=== PATIENT | female | born 1995 | race Two or more races ===

== ENCOUNTER 2018-03-09 22:43 | Emergency (ER) | payer BC ==
[2018-03-10 02:59] LABS: ABSOLUTE BASOPHILS # (AUTO) 0.1 10^3/uL (0.0-0.2); ABSOLUTE EOSINOPHILS # (AUTO) 0.1 10^3/uL (0.0-0.6); ABSOLUTE LYMPHOCYTES (AUTO) 2.1 10^3/uL (0.5-4.7); ABSOLUTE MONOCYTES (AUTO) 0.7 10^3/uL (0.1-1.4); ABSOLUTE NEUT (AUTO) 6.2 10^3/uL (1.7-8.2); BASOPHILS % (AUTO) 0.8 % (0-2); EOSINOPHILS % (AUTO) 0.8 % (0-6); HEMATOCRIT 34.4 % (36.0-47.0); HEMOGLOBIN 11.1 g/dL (12.0-15.5); LYMPHOCYTES % (AUTO) 22.6 % (13-45); MEAN CORPUSCULAR HEMOGLOBIN 22.6 pg (27.0-33.4); MEAN CORPUSCULAR HGB CONC 32.2 g/dL (32.0-36.0); MEAN CORPUSCULAR VOLUME 70 fl (80-97); MONOCYTES % (AUTO) 7.7 % (3-13); PLATELET COUNT 298 10^3/uL (150-450); RED CELL DISTRIBUTION WIDTH 15.3 % (11.5-14.0); SEGMENTED NEUTROPHILS % (AUTO) 68.1 % (42-78); TOTAL CELLS COUNTED % (AUTO) 100 %; WHITE BLOOD COUNT 9.1 10^3/uL (4.0-10.5)
[2018-03-10 03:40] LABS: APPEARANCE,URINE SLIGHTLY-CLOUDY; BILIRUBIN,URINE NEGATIVE (NEGATIVE); COLOR,URINE YELLOW; GLUCOSE, URINE NEGATIVE (NEGATIVE); KETONES,URINE NEGATIVE (NEGATIVE); LEUKOCYTE ESTERASE,URINE LARGE (NEGATIVE); NITRITE,URINE NEGATIVE (NEGATIVE); PROTEIN,URINE NEGATIVE (NEGATIVE); URINE SPECIFIC GRAVITY 1.027
--- NOTE | 2018-03-10 03:48 | RADIOLOGY REPORT (SQ) ---
EXAM DESCRIPTION: CHEST 2 VIEWS CLINICAL HISTORY: right sided pleurisy COMPARISON: None. FINDINGS: Frontal and lateral views of the chest. The cardiomediastinal silhouette has normal size and contour. No consolidation, pneumothorax, or pleural effusion. No displaced rib fractures identified. Upper abdominal soft tissues are unremarkable. IMPRESSION: 1. No acute pulmonary process identified.
[2018-03-10] MEDS ORDERED: KETOROLAC TROMETHAMINE INJ/PF 30 MG/1 ML SDV IV ONE (03:57)
[2018-03-10 04:22] LABS: ALANINE AMINOTRANSFERASE 70 U/L (9-52); ALKALINE PHOSPHATASE 106 U/L (38-126); ANION GAP 14 (5-19); ASPARTATE AMINO TRANSFERASE 45 U/L (14-36); BILIRUBIN,DIRECT 0.2 mg/dL (0.0-0.4); BILIRUBIN,TOTAL 0.2 mg/dL (0.2-1.3); BLOOD UREA NITROGEN 14 mg/dL (7-20); CALCIUM 9.4 mg/dL (8.4-10.2); CARBON DIOXIDE 25 mmol/L (22-30); CHLORIDE 106 mmol/L (98-107); GLUCOSE 94 mg/dL (75-110); LIPASE 54.5 U/L (23-300); POTASSIUM 4.7 mmol/L (3.6-5.0); SODIUM 144.7 mmol/L (137-145); TOTAL PROTEIN 7.3 g/dL (6.3-8.2)
--- NOTE | 2018-03-10 05:49 | RADIOLOGY REPORT (SQ) ---
EXAM DESCRIPTION: U/S ABDOMEN COMPLETE W/O DOP CLINICAL HISTORY: RUQ pain COMPARISON: None. TECHNIQUE: Real-time sonographic images of the abdomen were obtained using a curved multi hertz transducer. FINDINGS: The visualized portions of the pancreas are unremarkable. The visualized portions of the aorta and IVC are unremarkable. The liver has normal contour and echogenicity. The common bile duct measures 0.3 cm. Hepatopedal flow in the portal vein. The gallbladder has a normal appearance. Minimal layering echogenic debris. No gallstones identified. No wall thickening or pericholecystic fluid. The right kidney measures 9.1 cm in length. The left kidney measures 8.3 cm in length. No solid renal mass, shadowing renal calculi, or hydronephrosis. The spleen measures 9.4 cm in length.No abnormality of the spleen identified. IMPRESSION: 1. Small amount of gallbladder sludge. No gallstones.
--- NOTE | 2018-03-10 06:17 | ER Document Report ---
ED General - General Chief Complaint: Rib Pain Stated Complaint: FLANK PAIN Time Seen by Provider: 03/10/18 01:45 Notes: Patient is a 22-year-old female presents emergency room with a chief complaint of right upper quadrant pain for the past 2 days. Patient states that it occasionally radiates into her right shoulder. States it is worse in certain positions. She admits intermittent nausea without vomiting. Denies any fevers or chills. States that she does have some discomfort with deep inhalation. She denies any tobacco use, hormone use, recent travel or recent procedures. Otherwise healthy female. Denies any previous abdominal surgeries. Last menstrual period was about 1 week ago. TRAVEL OUTSIDE OF THE [place] IN LAST 30 DAYS: No - Related Data Allergies/Adverse Reactions: No Known Allergies Allergy (Unverified 03/10/18 07:08) Past Medical History - Social History Smoking Status: Never Smoker Frequency of alcohol use: Social Drug Abuse: None Family History: Reviewed & Not Pertinent Patient has suicidal ideation: No Patient has homicidal ideation: No Renal/ Medical History: Denies: Hx Peritoneal Dialysis Review of Systems - Review of Systems Constitutional: No symptoms reported EENT: No symptoms reported Cardiovascular: No symptoms reported Respiratory: No symptoms reported Gastrointestinal: See HPI Genitourinary: No symptoms reported Musculoskeletal: No symptoms reported -: Yes All other systems reviewed and negative Physical Exam - Vital signs Vitals: Temp Pulse Resp BP Pulse Ox 98.9 F 92 18 123/72 98 03/09/18 23:34 03/09/18 23:34 03/09/18 23:34 03/09/18 23:34 03/09/18 23:34 - Notes Notes: PHYSICAL EXAM GENERAL: Alert, interacts well. HEAD: Normocephalic, atraumatic. EYES: Pupils equal, round, and reactive to light. Extraocular movements intact. ENT: Oral mucosa moist, tongue midline. NECK: Full range of motion. Supple. Trachea midline. LUNGS: Clear to auscultation bilaterally, no wheezes, rales, or rhonchi. No respiratory distress. HEART: Regular rate and rhythm. No murmurs, gallops, or rubs. ABDOMEN: Soft, nondistended, right upper quadrant pain with positive Hardy sign. No guarding, rebound, or rigidity.. Bowel sounds present in all 4 quadrants. EXTREMITIES: Moves all 4 extremities spontaneously. No edema, radial and dorsalis pedis pulses 2/4 bilaterally. No cyanosis. NEUROLOGICAL: Alert and oriented x4. Normal speech. PSYCH: Normal affect, normal mood. SKIN: Warm, dry, normal turgor. No rashes or lesions noted. Course - Re-evaluation Re-evalutation: 03/10/18 06:16 Patient is a 22-year-old female who presents with right upper quadrant pain. There is noted gallbladder sludge on her right upper quadrant ultrasound. Mild elevations in her AST and ALT but without any significant elevations in her bilirubins. Patient not presenting with any acute infection concerning for's developing sepsis. Reviewed patient's results with her and she is declining to be admitted or evaluated by the surgeon this time. Discussed with her to follow -up with surgery next week and otherwise discussed strict return precautions. On repeat abdominal exam pain is much more tolerable after pain medication. Patient has not had any episodes of emesis and no nausea. - Vital Signs Vital signs: Temp Pulse Resp BP Pulse Ox 98.6 F 84 20 112/75 97 03/10/18 07:01 03/10/18 07:01 03/10/18 07:01 03/10/18 07:01 03/10/18 07:01 - Laboratory Result Diagrams: 03/10/18 02:40 03/10/18 03:46 Laboratory results interpreted by me: 03/10/18 03/10/18 03/10/18 02:40 03:16 03:46 Hgb 11.1 L Hct 34.4 L MCV 70 L MCH 22.6 L RDW 15.3 H AST 45 H ALT 70 H Urine Urobilinogen 4.0 H Ur Leukocyte Esterase LARGE H - Diagnostic Test Radiology reviewed: Reports reviewed Discharge - Discharge Clinical Impression: Abnormal gall bladder diagnostic imaging Condition: Good Disposition: HOME, SELF-CARE Instructions: Gallbladder Disease ([facility]), Low-Fat Diet ([facility]) Forms: Parent Work Note, Return to Work Referrals: NATIVIDAD CASTELAN MD [COMMUNITY BASED STAFF] - Follow up tomorrow (primary care) ASHER MAY MD [CRAYON PAINTER] - Follow up tomorrow (surgery)
[2018-03-10 07:08] VITALS: BP 112/75
== END 2018-03-10 07:20 | disposition home or self-care (01) ==
LOC: EDBD → ER 22:43
DX: K83.9 Disease of biliary tract, unspecified (principal); R07.81 Pleurodynia; R10.11 Right upper quadrant pain; M25.511 Pain in right shoulder; R11.0 Nausea
CPT/HCPCS: 99284; 96374; 36415; 83690; 84703; 85025; 80053; 81001; 71046; 76700; J1885

== ENCOUNTER 2018-03-12 20:06 | Emergency (ER) | payer BC ==
--- NOTE | 2018-03-12 20:33 | ER Document Report ---
ED Medical Screen (RME) - General Chief Complaint: Abdominal Pain Stated Complaint: ABDOMINAL PAIN Time Seen by Provider: 03/12/18 20:23 Notes: This 22-year-old female patient comes emergency room complaining of persistent right upper quadrant abdominal pain. She was seen here on 03/09/2018 with a 2 day history of right upper quadrant abdominal pain going up into her right upper scapular region. Ultrasound that time showed a small amount of gallbladder sludge with otherwise normal gallbladder. Her white blood cell count was normal, her transaminases were only slightly above the upper limit of normal. The urine done on that visit suggested urinary tract infection, but I cannot see where that was addressed in the chart or treated. She also reports that she started coughing yesterday evening. I have greeted and performed a rapid initial assessment of this patient. A comprehensive ED assessment and evaluation of the patient, analysis of test results and completion of the medical decision making process will be conducted by additional ED providers. TRAVEL OUTSIDE OF THE [place] IN LAST 30 DAYS: No - Related Data Allergies/Adverse Reactions: No Known Allergies Allergy (Unverified 03/10/18 07:08) Past Medical History - Social History Chew tobacco use (# tins/day): No Frequency of alcohol use: Occasional Drug Abuse: None Renal/ Medical History: Denies: Hx Peritoneal Dialysis Physical Exam - Vital signs Vitals: Temp Pulse Resp BP Pulse Ox 99.2 F 96 18 122/74 99 03/12/18 20:14 03/12/18 20:14 03/12/18 20:14 03/12/18 20:14 03/12/18 20:14 Course - Vital Signs Vital signs: Temp Pulse Resp BP Pulse Ox 99.2 F 96 18 122/74 99 03/12/18 20:14 03/12/18 20:14 03/12/18 20:14 03/12/18 20:14 03/12/18 20:14
[2018-03-12 21:30] LABS: ABSOLUTE BASOPHILS # (AUTO) 0.1 10^3/uL (0.0-0.2); ABSOLUTE EOSINOPHILS # (AUTO) 0.1 10^3/uL (0.0-0.6); ABSOLUTE LYMPHOCYTES (AUTO) 2.3 10^3/uL (0.5-4.7); ABSOLUTE MONOCYTES (AUTO) 0.7 10^3/uL (0.1-1.4); ABSOLUTE NEUT (AUTO) 6.8 10^3/uL (1.7-8.2); EOSINOPHILS % (AUTO) 0.9 % (0-6); HEMATOCRIT 32.4 % (36.0-47.0); HEMOGLOBIN 10.3 g/dL (12.0-15.5); LYMPHOCYTES % (AUTO) 22.6 % (13-45); MEAN CORPUSCULAR HEMOGLOBIN 22.5 pg (27.0-33.4); MEAN CORPUSCULAR HGB CONC 31.7 g/dL (32.0-36.0); MEAN CORPUSCULAR VOLUME 71 fl (80-97); PLATELET COUNT 349 10^3/uL (150-450); RED BLOOD COUNT 4.57 10^6/uL (3.72-5.28); RED CELL DISTRIBUTION WIDTH 15.4 % (11.5-14.0); SEGMENTED NEUTROPHILS % (AUTO) 68.5 % (42-78); TOTAL CELLS COUNTED % (AUTO) 100 %
[2018-03-12 21:41] LABS: APPEARANCE,URINE CLEAR; BILIRUBIN,URINE NEGATIVE (NEGATIVE); COLOR,URINE YELLOW; GLUCOSE, URINE NEGATIVE (NEGATIVE); KETONES,URINE NEGATIVE (NEGATIVE); LEUKOCYTE ESTERASE,URINE TRACE (NEGATIVE); NITRITE,URINE NEGATIVE (NEGATIVE); PROTEIN,URINE NEGATIVE (NEGATIVE); URINE SPECIFIC GRAVITY 1.024
[2018-03-12 21:51] LABS: ALANINE AMINOTRANSFERASE 42 U/L (9-52); ALBUMIN 4.2 g/dL (3.5-5.0); ALKALINE PHOSPHATASE 101 U/L (38-126); ANION GAP 13 (5-19); ASPARTATE AMINO TRANSFERASE 34 U/L (14-36); BILIRUBIN,DIRECT 0.2 mg/dL (0.0-0.4); BILIRUBIN,TOTAL 0.2 mg/dL (0.2-1.3); BLOOD UREA NITROGEN 17 mg/dL (7-20); CARBON DIOXIDE 25 mmol/L (22-30); CHLORIDE 105 mmol/L (98-107); GLUCOSE 85 mg/dL (75-110); LIPASE 83.1 U/L (23-300); POTASSIUM 4.3 mmol/L (3.6-5.0); SODIUM 142.6 mmol/L (137-145); TOTAL PROTEIN 7.6 g/dL (6.3-8.2)
[2018-03-12] MEDS ORDERED: MORPHINE SULFATE 10 MG/ML INJ IV ONE (22:15)
--- NOTE | 2018-03-12 22:59 | RADIOLOGY REPORT (SQ) ---
EXAM DESCRIPTION: U/S ABDOMEN LTD W/DOPPLER COMPLETED DATE/TIME: 03/12/2018 10:49 pm REASON FOR STUDY: RUQ pain COMPARISON: 03/10/2018 TECHNIQUE: Dynamic and static grayscale images acquired of the abdomen and recorded on PACS. Anilo enwton selected color Doppler and spectral images recorded. LIMITATIONS: None. FINDINGS: PANCREAS: No masses. Visualized pancreatic duct normal caliber. LIVER: No masses. Echotexture normal. LIVER VASCULATURE: Normal directional flow of the main portal vein and hepatic veins. GALLBLADDER: No stones. Normal wall thickness. No pericholecystic fluid. ULTRASOUND-DETECTED KERR'S SIGN: Negative. INTRAHEPATIC DUCTS AND COMMON DUCT: CBD and intrahepatic ducts normal caliber. No filling defects. INFERIOR VENA CAVA: Normal flow. AORTA: No aneurysm. RIGHT KIDNEY: Normal size. Normal echogenicity. No solid or suspicious masses. No hydronephrosis. No calcifications. PERITONEAL AND RIGHT PLEURAL SPACE: No ascites or effusions. OTHER: No other significant findings. IMPRESSION: NORMAL RIGHT UPPER QUADRANT ULTRASOUND. TECHNICAL DOCUMENTATION: JOB ID: [id number] [employer]- All Rights Reserved Reading location - IP/workstation name: [email or web address]
--- NOTE | 2018-03-13 00:10 | ER Document Report ---
ED General - General Chief Complaint: Abdominal Pain Stated Complaint: ABDOMINAL PAIN Time Seen by Provider: 03/12/18 20:23 Notes: Patient is a 22-year-old female who presents with complaint of right upper quadrant abdominal pain. Some nausea but no vomiting. No diarrhea. She has it is worse whenever she eats. She was seen few days ago. At that time ultrasound showed some sludge in gallbladder. Said when she gets pain does radiate into her right shoulder blade. She has no history of abdominal surgeries. She is otherwise healthy and does not take medications. She is referred to surgery. She did call the surgery clinic and set up an appointment which is this coming Wednesday. No other complaints this time. No fevers. TRAVEL OUTSIDE OF THE [place] IN LAST 30 DAYS: No - Related Data Allergies/Adverse Reactions: No Known Allergies Allergy (Unverified 03/10/18 07:08) Past Medical History - Social History Smoking Status: Never Smoker Chew tobacco use (# tins/day): No Frequency of alcohol use: Occasional Drug Abuse: None Family History: Reviewed & Not Pertinent Patient has suicidal ideation: No Patient has homicidal ideation: No Renal/ Medical History: Denies: Hx Peritoneal Dialysis Review of Systems - Review of Systems Notes: My Normal Review Basic REVIEW OF SYSTEMS: CONSTITUTIONAL : Denies fever, chills, or sweats. Denies recent illness. CARDIOVASCULAR: Denies chest pain. RESPIRATORY: Denies cough, cold, or chest congestion. Denies shortness of breath, difficulty breathing, or wheezing. GASTROINTESTINAL: Upper quadrant abdominal pain. Nausea. No vomiting. GENITOURINARY: Denies difficulty urinating, painful urination, burning, frequency, or blood in urine. MUSCULOSKELETAL: Denies neck or back pain or joint pain or swelling. SKIN: Denies rash or skin lesions. NEUROLOGICAL: Denies altered mental status or loss of consciousness. Denies headache. Denies weakness or paralysis or loss of use of either side. Denies problems with gait or speech. Denies sensory or motor loss. ALL OTHER SYSTEMS REVIEWED AND NEGATIVE. Physical Exam - Vital signs Vitals: Temp Pulse Resp BP Pulse Ox 99.2 F 96 18 122/74 99 03/12/18 20:14 03/12/18 20:14 03/12/18 20:14 03/12/18 20:14 03/12/18 20:14 - Notes Notes: General Appearance: Well nourished, alert, cooperative, no acute distress, obvious discomfort. Vitals: reviewed, See vital signs table. Head: no swelling or tenderness to the head Eyes: PERRL, EOMI, Conjuctiva clear Lungs: No wheezing, No rales, No rhonci, No accessory muscle use, good air exchange bilaterally. Heart: Normal rate, Regular rythm, No murmur, no rub Abdomen: Normal BS, soft, No rigidity, mild right upper quadrant abdominal tenderness to palpation. Remainder of abdomen is nontender., No guarding, no rebound, no abdominal masses, no organomegaly Extremities: strength 5/5 in all extremities, good pulses in all extremities, no swelling or tenderness in the extremities, no edema. Skin: warm, dry, appropriate color, no rash Neuro: speech clear, oriented x 3, normal affect, responds appropriately to questions. Course - Re-evaluation Re-evalutation: 03/13/18 00:21 Patient's laboratory evaluation is unremarkable. Her history and physical exam findings are consistent with what is likely be biliary dyskinesia. At this time she does not require emergent cholecystectomy. I think she is appropriate for outpatient follow-up with her appointment with the surgery clinic this coming Wednesday. I will prescribe her some Ultram to take 1 she has worsening pain not controlled Motrin or Tylenol. I informed her to return to the ER if she has severe recurrent pain, fevers, vomiting, or feels unwell. I talked her length about avoiding fatty foods and basically to eat just a very very bland diet until she is seen by the surgeon. Patient agrees with plan will be discharged home. Dictation of this chart was performed using voice recognition software; therefore, there may be some unintended grammatical errors. - Vital Signs Vital signs: Temp Pulse Resp BP Pulse Ox 99.2 F 96 18 122/74 99 03/12/18 20:14 03/12/18 20:14 03/12/18 20:14 03/12/18 20:14 03/12/18 20:14 - Laboratory Result Diagrams: 03/12/18 21:10 03/12/18 21:10 Laboratory results interpreted by me: 03/12/18 03/12/18 21:10 21:10 Hgb 10.3 L Hct 32.4 L MCV 71 L MCH 22.5 L MCHC 31.7 L RDW 15.4 H Urine Urobilinogen 2.0 H Ur Leukocyte Esterase TRACE H Discharge - Discharge Clinical Impression: Abdominal pain Qualifiers: Abdominal location: right upper quadrant Qualified Code(s): R10.11 - Right upper quadrant pain Condition: Good Disposition: HOME, SELF-CARE Additional Instructions: Please follow up with your appointment with the surgeon on Wednesday as scheduled. please return tot he ER immediately if you have worsening pain, fevers, vomiting , or feel unwell. Please avoid all foods that are spicy or potentially have fat. Please eat very bland food. Take Tylenol and Motrin initially for pain. Save the Ultram for if the Motrin and Tylenol do not help. Prescriptions: Tramadol HCl [Ultram 50 mg Tablet] 50 mg PO Q6HP PRN #15 tablet PRN Reason: Ondansetron [Zofran Odt 4 mg Tablet] 1 tab PO Q4H PRN #15 tab.rapdis PRN Reason: For Nausea/Vomiting
[2018-03-13 00:37] VITALS: BP 117/76
== END 2018-03-13 00:37 | disposition home or self-care (01) ==
LOC: ER 20:06
DX: R10.11 Right upper quadrant pain (principal); R11.0 Nausea
CPT/HCPCS: 99284; 96374; 36415; 87086; 83690; 85025; 80053; 81001; 76705; 93976; J2270

== ENCOUNTER → 2018-03-15 | Outpatient (CLI) | payer SELFPAY ==
--- NOTE | 2018-03-15 15:04 | RADIOLOGY REPORT (SQ) ---
EXAM DESCRIPTION: CT ABD/PELVIS WITH IV ONLY COMPLETED DATE/TIME: 03/15/2018 2:33 pm REASON FOR STUDY: RUQ PAIN (R10.11) R10.11 RIGHT UPPER QUADRANT PAIN COMPARISON: Abdominal ultrasound dated 03/12/2018 TECHNIQUE: CT scan of the abdomen and pelvis performed using helical scanning technique with dynamic intravenous contrast injection. No oral contrast. Images reviewed with lung, soft tissue, and bone windows. Reconstructed coronal and sagittal MPR images reviewed. Delayed images for evaluation of the urinary system also acquired. All images stored on PACS. All CT scanners at this facility use dose modulation, iterative reconstruction, and/or weight based d osing when appropriate to reduce radiation dose to as low as reasonably achievable (ALARA). [facility]: Dose Right [facility]: CareDose [facility]: Dose Right [facility]: Teradose 4D [facility]: [employer] CONTRAST TYPE AND DOSE: contrast/concentration: Isovue mg/ml; Total Contrast Delivered: 100.0 ml; T otal Saline Delivered: 52.9 ml RENAL FUNCTION: None required. The patient is less than 50 years old. RADIATION DOSE: CT Rad equipment meets quality standard of care and radiation dose reduction techniq ues were employed. CTDIvol: 12.1 - 13.0 mGy. DLP: 1330 mGy-cm.. LIMITATIONS: None. FINDINGS: LOWER CHEST: No significant findings. No nodules or infiltrates. Minimal linear density i s identified in the right posterior sulcus most consistent with subsegmental atelectasis. LIVER: Normal size. No masses. No dilated ducts. SPLEEN: Normal size. No focal lesions. PANCREAS: No masses. No significant calcifications. No adjacent inflammation or peripancreatic fluid collections. Pancreatic duct not dilated. GALLBLADDER: No identified stones by CT criteria. No inflammatory changes to suggest cholecystitis. ADRENAL GLANDS: No significant masses or asymmetry. RIGHT KIDNEY AND URETER: No solid masses. No significant calcifications. No hydronephrosis or hyd roureter. LEFT KIDNEY AND URETER: No solid masses. No significant calcifications. No hydronephrosis or hydr oureter. AORTA AND VESSELS: No aneurysm. No dissection. Renal arteries, SMA, celiac without stenosis. RETROPERITONEUM: No retroperitoneal adenopathy, hemorrhage or masses. BOWEL AND PERITONEAL CAVITY: No masses or inflammatory changes. No free fluid or peritoneal masses. APPENDIX: Not identified PELVIS: There is a 5.5 by 3.9 cm in diameter mass in the left pelvis suspicious for an ectopic gestat ion. Other etiologies cannot be excluded however. Clinical correlation is recommended. Pelvic ultr asound may be of value for further evaluation if clinically warranted. Small cystic area is identifi ed in the right pelvis most consistent with a small right ovarian cyst. No free fluid. Normal bladde r. ABDOMINAL WALL: No masses. No hernias. BONES: No significant or acute findings. OTHER: No other significant finding. IMPRESSION: Left pelvic mass as noted above suspicious for an ectopic gestation. Other etiologies c annot be excluded. Clinical correlation is recommended. Pelvic ultrasound may be of value for furth er evaluation if clinically warranted. Other findings as noted above TECHNICAL DOCUMENTATION: JOB ID: [id number] Quality ID # [id number]: Final reports with documentation of one or more dose reduction techniques (e.g., Au tomated exposure control, adjustment of the mA and/or kV according to patient size, use of iterative reconstruction technique) 2010 [employer]- All Rights Reserved Reading location - IP/workstation name: [email or web address]
== END ==
LOC: RAD 13:56
PROVIDERS: ATTEND Internal Medicine
DX: R10.11 Right upper quadrant pain (principal); R19.02 Left upper quadrant abdominal swelling, mass and lump
CPT/HCPCS: 74177

== ENCOUNTER 2018-07-16 10:14 | Emergency (ER) | payer BC ==
[2018-07-16] MEDS ORDERED: KETOROLAC TROMETHAMINE INJ/PF 30 MG/1 ML SDV IV ONE (10:46)
[2018-07-16] MEDS ORDERED: DEXAMETHASONE SOD PHOS INJ 10 MG/1 ML VIAL IV ONE (10:46)
[2018-07-16] MEDS ORDERED: RINGERS SOLUTION,LACTATED 1,000 ML IV ONE (10:50)
--- NOTE | 2018-07-16 10:52 | ER Document Report ---
ED ENT - General Mode of Arrival: Ambulatory Information source: Patient TRAVEL OUTSIDE OF THE [place] IN LAST 30 DAYS: No - HPI Patient complains to provider of: Throat problem - Your throat pain Onset/Duration: Persistent, Worse Quality of pain: Sharp, Stabbing Severity: Moderate Pain Level: 3 Location of pain: Throat Associated symptoms: Sore throat, Swollen glands, Other - Quality swallowing Similar symptoms previously: Yes Recently seen / treated by doctor: Yes <NARINDER CARSON - Last Filed: 07/16/18 17:13> <VICK LUCERO - Last Filed: 07/16/18 19:38> - General Chief Complaint: Sore Throat Stated Complaint: MOUTH PAIN Time Seen by Provider: 07/16/18 10:37 Notes: 22-year-old female presents to ED for complaint of sore throat. She states she is having difficulty swallowing today. She states she was diagnosed with strep yesterday at Dr. Rodriguez's office. She states she would they did not swab her throat but her most of her pain is on the left side. She states she was given amoxicillin and Motrin to take orally there was liquid but she is having trouble swallowing the medications now. She is alert oriented speaking with a muffled voice. She does have a blister to the left side of her mouth she states that from putting ice on her lips trying to keep herself hydrated. She states that when she tries to open her mouth because of the blister to bleed. ( NARINDER CARSON) - Related Data Allergies/Adverse Reactions: No Known Allergies Allergy (Verified 07/16/18 10:18) Past Medical History - General Information source: Patient - Social History Smoking Status: Never Smoker Cigarette use (# per day): No Chew tobacco use (# tins/day): No Smoking Education Provided: No Frequency of alcohol use: Occasional Drug Abuse: None Occupation: [employer] Lives with: Spouse/Significant other Family History: Reviewed & Not Pertinent Patient has suicidal ideation: No Patient has homicidal ideation: No - Past Medical History Cardiac Medical History: Reports: None Pulmonary Medical History: Reports: Hx Bronchitis EENT Medical History: Reports: None Neurological Medical History: Reports: None Endocrine Medical History: Reports: None Renal/ Medical History: Reports: None Malignancy Medical History: Reports: None GI Medical History: Reports: None Musculoskeletal Medical History: Reports None Skin Medical History: Reports None Psychiatric Medical History: Reports: None Traumatic Medical History: Reports: None Infectious Medical History: Reports: None Surgical Hx: Negative Past Surgical History: Reports: None - Immunizations Immunizations up to date: Yes <NARINDER CARSON Filed: 07/16/18 17:13> Review of Systems - Review of Systems Constitutional: No symptoms reported EENT: Throat pain - Worse to the left side, Difficulty swallowing, Other - Due to the left side of the bottom lip Cardiovascular: No symptoms reported Respiratory: No symptoms reported Gastrointestinal: No symptoms reported Genitourinary: No symptoms reported Female Genitourinary: No symptoms reported Musculoskeletal: No symptoms reported Skin: No symptoms reported Hematologic/Lymphatic: No symptoms reported Neurological/Psychological: No symptoms reported <NARINDER CARSON Filed: 07/16/18 17:13> Physical Exam - Vital signs Interpretation: Normal - General General appearance: Appears well, Alert - HEENT Head: Normocephalic, Atraumatic Eyes: Normal Pupils: PERRL Ears: Normal External canal: Normal Tympanic membrane: Normal Sinus: Normal Nasal: Normal Mouth/Lips: Lesions - Left lower lip Pharynx: Erythema, Exudate, Tonsillar hypertrophy Neck: Anterior cervical chain, Lymphadenopathy - Respiratory Respiratory status: No respiratory distress Chest status: Nontender Breath sounds: Normal Chest palpation: Normal - Cardiovascular Rhythm: Regular Heart sounds: Normal auscultation Murmur: No - Abdominal Inspection: Normal Distension: No distension Bowel sounds: Normal Tenderness: Nontender Organomegaly: No organomegaly - Back Back: Normal, Nontender - Extremities General upper extremity: Normal inspection, Nontender, Normal color, Normal ROM , Normal temperature General lower extremity: Normal inspection, Nontender, Normal color, Normal ROM , Normal temperature, Normal weight bearing. No: John's sign - Neurological Neuro grossly intact: Yes Cognition: Normal Orientation: AAOx4 [place] Coma Scale Eye Opening: Spontaneous [place] Coma Scale Verbal: Oriented [place] Coma Scale Motor: Obeys Commands Sandra Coma Scale Total: 15 Speech: Normal Motor strength normal: LUE, RUE, LLE, RLE Sensory: Normal - Psychological Associated symptoms: Normal affect, Normal mood - Skin Skin Temperature: Warm Skin Moisture: Dry Skin Color: Normal <NARINDER CARSON - Last Filed: 07/16/18 17:13> - Vital signs Vitals: Temp Pulse Resp BP Pulse Ox 98.5 F 103 H 16 127/87 H 98 07/16/18 10:18 07/16/18 10:18 07/16/18 10:18 07/16/18 10:18 07/16/18 10:18 Course - Laboratory Result Diagrams: 07/16/18 11:05 07/16/18 11:05 - Diagnostic Test Radiology reviewed: Image reviewed, Reports reviewed <NARINDER CARSON - Last Filed: 07/16/18 17:13> - Laboratory Result Diagrams: 07/16/18 11:05 07/16/18 11:05 <VICK LUCERO - Last Filed: 07/16/18 19:38> - Re-evaluation Re-evalutation: 07/16/18 17:[address] with Dr. Lucero. She recommended the patient have labs and CT for her sore throat when the CT was showed no acute peritonsillar abscess she stated the patient should be treated with penicillin G. Patient was treated with Toradol and Decadron and then after her CT results she was treated with penicillin G IM. (NARINDER CARSON) 07/16/18 19:37 CAT scan LAD obtained prior to discussion with APC. Patient reports being diagnosed with strep throat yesterday at urgent care but states that she is unable to swallow her medication. I did recommend penicillin G IM. (VICK LUCERO) - Vital Signs Vital signs: Temp Pulse Resp BP Pulse Ox 98.5 F 92 16 124/85 98 07/16/18 10:18 07/16/18 13:29 07/16/18 10:18 07/16/18 13:29 07/16/18 13:29 - Laboratory Laboratory results interpreted by me: 07/16/18 07/16/18 11:05 11:05 Hgb 11.5 L Hct 35.7 L MCV 70 L MCH 22.5 L RDW 15.3 H AST 37 H Total Protein 8.9 H Discharge <NARINDER CARSON - Last Filed: 07/16/18 17:13> <VICK LUCERO - Last Filed: 07/16/18 19:38> - Discharge Clinical Impression: Sore throat Condition: Stable Disposition: HOME, SELF-CARE Additional Instructions: SORE THROAT: Sore throats may be caused by viruses, bacteria, or fungi. Most are due to a virus, and must get better on their own. Bacterial sore throats, particularly those due to "strep," need treatment with antibiotics. If an antibiotic is prescribed, be sure to take the medication for a full 10 days. Failure to take the antibiotic can result in complications such as rheumatic fever. Sometimes, an injection of antibiotics is given instead of pills or liquid. This single "shot" is equal in effectiveness to the oral medication. To relieve symptoms, take acetaminophen for pain. Sip clear liquids frequently, or eat popsicles or ice chips. Anesthetic sprays or lozenges may help. Make sure the air in the room is not too dry. Avoid using decongestants or antihistamines. Call the doctor if there is no improvement in two days, or if you have difficulty breathing, increasing throat pain, high fever, rash, or frequent vomiting. Penicillins The antibiotic you have received is a member of the penicillin family. This is a very useful class of antibiotics. The particular type of antibiotic chosen for you was determined by the nature of your problem. Penicillins are absorbed best when taken on an empty stomach, and should be taken either a half hour before or two hours after a meal. Some newer medicines of the penicillin class are better taken with food -- if this is the case, the pharmacist will label the medicine to alert you. Penicillins usually have no side effects. However, allergy to penicillins is common. If you have had an allergic reaction to any drug of the penicillin family, you should never take any other penicillin. Notify your doctor at once if you develop hives, itching, swelling, faintness, or shortness of breath. Less serious side effects can include nausea or diarrhea. Toradol Injection You have been given an injection of ketorolac tromethamine (Toradol). This is an excellent, safe drug for pain control. It also has potent antiinflammatory action. You should have significant pain relief within about one hour. Toradol is not addicting and is non-sedating. It does not interfere with driving or work. Call or return if you develop itching, hives, shortness of breath, or rash. STEROID MEDICATION: You have been given a medicine of the cortisone/steroid class. This medication is used to control inflammation or allergy. It is usually only given for a short period of time, until the acute process subsides. There are usually no side effects from short-term use of cortisone-like medications. Some persons feel an increased sense of well-being and are not sleepy at bedtime. Long-term use of cortisone medications is best avoided, unless required for a severe condition. If your condition does not remit, or relapses after the course of corticosteroid medication, you should consult your physician. I have given you a written report of your labs and CT. Please follow-up with Dr. Rodriguez on Wednesday and take him these results. Please let him know you had a penicillin G shot today as you unable to swallow your oral medications. Please let them know that you also had Toradol and Decadron for your discomfort. Salt and soda solution 1 quart of water 1 tablespoon of salt 1 teaspoon of baking soda Mixed 3 ingredients together and boil for 1 minute Placed in a covered quart jar Use 1/2 ounce of cold solution to gargle 3 times a day FOLLOW-UP CARE: If you have been referred to a physician for follow-up care, call the physician s office for an appointment as you were instructed or within the next two days. If you experience worsening or a significant change in your symptoms, notify the physician immediately or return to the Emergency Department at any time for re-evaluation. Referrals: YOSVANY RODRIGUEZ MD [Primary Care Provider] - Follow up as needed JOEY BROOKS DO [ASSOCIATE] - Follow up as needed
[2018-07-16 11:31] LABS: ABSOLUTE LYMPHOCYTES (AUTO) 1.7 10^3/uL (0.5-4.7); ABSOLUTE MONOCYTES (AUTO) 0.9 10^3/uL (0.1-1.4); ABSOLUTE NEUT (AUTO) 4.9 10^3/uL (1.7-8.2); BASOPHILS % (AUTO) 0.3 % (0-2); EOSINOPHILS % (AUTO) 0.2 % (0-6); HEMATOCRIT 35.7 % (36.0-47.0); HEMOGLOBIN 11.5 g/dL (12.0-15.5); LYMPHOCYTES % (AUTO) 22.1 % (13-45); MEAN CORPUSCULAR HEMOGLOBIN 22.5 pg (27.0-33.4); MEAN CORPUSCULAR HGB CONC 32.2 g/dL (32.0-36.0); MEAN CORPUSCULAR VOLUME 70 fl (80-97); MONOCYTES % (AUTO) 12.5 % (3-13); PLATELET COUNT 247 10^3/uL (150-450); RED BLOOD COUNT 5.09 10^6/uL (3.72-5.28); RED CELL DISTRIBUTION WIDTH 15.3 % (11.5-14.0); SEGMENTED NEUTROPHILS % (AUTO) 64.9 % (42-78); TOTAL CELLS COUNTED % (AUTO) 100 %; WHITE BLOOD COUNT 7.6 10^3/uL (4.0-10.5)
[2018-07-16 11:58] LABS: ALANINE AMINOTRANSFERASE 42 U/L (9-52); ALBUMIN 4.4 g/dL (3.5-5.0); ALKALINE PHOSPHATASE 93 U/L (38-126); ANION GAP 11 (5-19); ASPARTATE AMINO TRANSFERASE 37 U/L (14-36); BILIRUBIN,DIRECT 0.3 mg/dL (0.0-0.4); BILIRUBIN,TOTAL 0.4 mg/dL (0.2-1.3); BLOOD UREA NITROGEN 9 mg/dL (7-20); CALCIUM 9.7 mg/dL (8.4-10.2); CARBON DIOXIDE 25 mmol/L (22-30); CHLORIDE 104 mmol/L (98-107); GLUCOSE 88 mg/dL (75-110); POTASSIUM 3.9 mmol/L (3.6-5.0); SODIUM 139.5 mmol/L (137-145); TOTAL PROTEIN 8.9 g/dL (6.3-8.2)
--- NOTE | 2018-07-16 13:06 | RADIOLOGY REPORT (SQ) ---
EXAM DESCRIPTION: CT SOFT TISSUE NECK WITH COMPLETED DATE/TIME: 07/16/2018 12:37 pm REASON FOR STUDY: Difficulty swallowing sore throat negative strep a COMPARISON: None. TECHNIQUE: Post IV contrasted scanning from skull base through lung apices with review of bone, soft tissue and lung windows. Reconstructed coronal and sagittal MPR images reviewed. All images stored on PACS. All CT scanners at this facility use dose modulation, iterative reconstruction, and/or weight based d osing when appropriate to reduce radiation dose to as low as reasonably achievable (ALARA). [facility]: Dose Right [facility]: CareDose [facility]: Dose Right [facility]: Teradose 4D [facility]: [employer] CONTRAST TYPE AND DOSE: contrast/concentration: Isovue 350.00 mg/ml; Total Contrast Delivered: 75.0 ml; Total Saline Delivered: 53.0 ml RENAL FUNCTION: Creatinine: 0.75. RADIATION DOSE: CT Rad equipment meets quality standard of care and radiation dose reduction techniq ues were employed. CTDIvol: 16.2 mGy. DLP: 511 mGy-cm. . LIMITATIONS: None. FINDINGS: SKULL BASE: Intact. MAJOR SALIVARY GLANDS: No abnormality of the visualized parotid glands. The right submandibular glan d is slightly larger than the left. No definite abnormality seen. LYMPHADENOPATHY there is evidence of scattered small posterior cervical nodes and anterior cervical n odes. Prominent bilateral submandibular nodes and level 2 cervical nodes. MUCOSAL MASSES OR ASYMMETRY: No mucosal masses or asymmetry. LARYNX/CORDS: No abnormal findings. No abnormality of the brachiocephalic vessels. No abnormality of the thoracic aortic arch. The aidan r vessels are patent. LUNG APICES: No abnormality seen. BONES: Intact. THYROID: No abnormality. PARANASAL SINUSES: Mucosal thickening in both maxillary sinuses consistent with chronic sinusitis. OTHER: Adenoidal tissue is prominent. Symmetrical appearance of tonsillar glands IMPRESSION: No significant abnormality seen. Cervical adenopathy. TECHNICAL DOCUMENTATION: JOB ID: [id number] Quality ID # [id number]: Final reports with documentation of one or more dose reduction techniques (e.g., Au tomated exposure control, adjustment of the mA and/or kV according to patient size, use of iterative reconstruction technique) 2010 [employer]- All Rights Reserved Reading location - IP/workstation name: [email or web address]
[2018-07-16] MEDS ORDERED: PENICILLIN G BENZATHINE 1.2 MILLION UNIT/2 ML DISP.SYRIN IM ONE (13:22)
[2018-07-16 13:39] VITALS: BP 124/85
== END 2018-07-16 13:50 | disposition home or self-care (01) ==
LOC: ER 10:14
DX: J02.0 Streptococcal pharyngitis (principal); J35.1 Hypertrophy of tonsils; R13.10 Dysphagia, unspecified; K13.0 Diseases of lips
CPT/HCPCS: 99284; 96372; 96361; 96374; 96375; 36415; 87070; 87880; 84703; 85025; 86308; 80053; 70491; J1885; J0561; J7120; J1100

== ENCOUNTER 2019-10-03 11:27 | Outpatient (CLI) | payer BC ==
[2019-10-03 12:30] LABS: APPEARANCE,URINE SLIGHTLY-CLOUDY; BILIRUBIN,URINE NEGATIVE (NEGATIVE); COLOR,URINE YELLOW; GLUCOSE, URINE NEGATIVE (NEGATIVE); KETONES,URINE NEGATIVE (NEGATIVE); LEUKOCYTE ESTERASE,URINE NEGATIVE (NEGATIVE); NITRITE,URINE NEGATIVE (NEGATIVE); PROTEIN,URINE 30 mg/dL (NEGATIVE); URINE SPECIFIC GRAVITY 1.016; UROBILINOGEN,URINE NEGATIVE mg/dL (<2.0)
[2019-10-03 12:54] LABS: URINE AMPHETAMINES SCREEN NEGATIVE; URINE BARBITURATES SCREEN NEGATIVE; URINE BENZODIAZEPINES SCREEN NEGATIVE; URINE COCAINE SCREEN NEGATIVE; URINE MARIJUANA (THC) SCREEN NEGATIVE; URINE METHADONE SCREEN NEGATIVE; URINE PHENCYCLIDINE SCREEN NEGATIVE
[2019-10-03 13:23] LABS: ABSOLUTE LYMPHOCYTES (AUTO) 1.3 10^3/uL (0.5-4.7); ABSOLUTE MONOCYTES (AUTO) 0.4 10^3/uL (0.1-1.4); ABSOLUTE NEUT (AUTO) 7.6 10^3/uL (1.7-8.2); BASOPHILS % (AUTO) 0.3 % (0-2); EOSINOPHILS % (AUTO) 0.3 % (0-6); HEMATOCRIT 32.3 % (36.0-47.0); HEMOGLOBIN 10.5 g/dL (12.0-15.5); LYMPHOCYTES % (AUTO) 14.1 % (13-45); MEAN CORPUSCULAR HEMOGLOBIN 23.4 pg (27.0-33.4); MEAN CORPUSCULAR HGB CONC 32.5 g/dL (32.0-36.0); MEAN CORPUSCULAR VOLUME 72 fl (80-97); MONOCYTES % (AUTO) 4.3 % (3-13); PLATELET COUNT 232 10^3/uL (150-450); RED BLOOD COUNT 4.47 10^6/uL (3.72-5.28); RED CELL DISTRIBUTION WIDTH 15.5 % (11.5-14.0); TOTAL CELLS COUNTED % (AUTO) 100 %; WHITE BLOOD COUNT 9.4 10^3/uL (4.0-10.5)
== END 2019-10-03 14:38 | disposition home or self-care (01) ==
LOC: LC 11:27
PROVIDERS: ATTEND Obstetrics & Gynecology
PROC: 4A1HXCZ Monitoring of Products of Conception, Cardiac Rate, External Approach (ICD-10-PCS; principal; 2019-10-03)
DX: O26.892 Other specified pregnancy related conditions, second trimester (principal); H66.90 Otitis media, unspecified, unspecified ear; Z3A.27 27 weeks gestation of pregnancy
CPT/HCPCS: 36415; 80307; 81001; 85025

== ENCOUNTER 2019-12-06 09:50 | Outpatient (CLI) | payer BC ==
[2019-12-06] MEDS ORDERED: RINGERS SOLUTION,LACTATED 2,000 ML IV ONE (10:59)
[2019-12-06] MEDS ORDERED: RINGERS SOLUTION,LACTATED 1,000 ML IV PRN (10:59)
[2019-12-06 12:25] LABS: APPEARANCE,URINE CLEAR; BILIRUBIN,URINE NEGATIVE (NEGATIVE); COLOR,URINE STRAW; GLUCOSE, URINE NEGATIVE (NEGATIVE); KETONES,URINE NEGATIVE (NEGATIVE); LEUKOCYTE ESTERASE,URINE NEGATIVE (NEGATIVE); NITRITE,URINE NEGATIVE (NEGATIVE); PROTEIN,URINE NEGATIVE (NEGATIVE); URINE SPECIFIC GRAVITY 1.003; UROBILINOGEN,URINE NEGATIVE mg/dL (<2.0)
[2019-12-06 13:04] LABS: URINE AMPHETAMINES SCREEN NEGATIVE; URINE BARBITURATES SCREEN NEGATIVE; URINE BENZODIAZEPINES SCREEN NEGATIVE; URINE COCAINE SCREEN NEGATIVE; URINE MARIJUANA (THC) SCREEN NEGATIVE; URINE METHADONE SCREEN NEGATIVE; URINE PHENCYCLIDINE SCREEN NEGATIVE
--- NOTE | 2019-12-06 16:34 | RADIOLOGY REPORT (SQ) ---
EXAM DESCRIPTION: U/S OB LIMITED COMPLETED DATE/TIME: 12/06/2019 4:20 pm REASON FOR STUDY: low Amniotic fluid at 36 wks COMPARISON: None. TECHNIQUE: Limited transabdominal grayscale ultrasound for evaluation of specific requested obstetri joe parameters. LIMITATIONS: None. FINDINGS: CERVICAL LENGTH: 4.9 cm. Closed. LV P: 6.9 cm. FHR: 141 beats per minute. PRESENTATION: Cephalic. PLACENTA: Anterior, grade 1. ANATOMY: Not assessed OTHER: Intrauterine gestation of 36 weeks 1 day. IMPRESSION: LIMITED OBSTETRICAL ULTRASOUND WITH MEASURED PARAMETERS DELINEATED ABOVE. Trimester of : Third trimester - 28 weeks to delivery. TECHNICAL DOCUMENTATION: JOB ID: [id number] [employer]- All Rights Reserved Reading location - IP/workstation name: [email or web address]
--- NOTE | 2019-12-06 16:51 | Non Stress Test Report ---
Non Stress Test Datetime Report Generated by CPN: 12/06/2019 16:51 DEMOGRAPHIC EGA NST: 36.1 INDICATION Indication for Study (NST) Other: Hydration and repeat BONILLA MONITORING Monitor Explained: Monitor Explained; Test Explained; Patient Verbalized Understanding Time on Monitor: 12/06/2019 10:03 Time off Monitor: 12/06/2019 15:46 NST Duration: 343 NST INTERVENTIONS NST Interventions: PO Hydration; IV Fluids Physician Notified NST: N Goodrich CNM BABY A: [id number] BABY A Movement : Present Contraction Frequency : occasional Accelerations : 15X15 Variability : Moderate 6-25bpm NST Review: Meets Criteria for Reactive NST NST Review and Verified By : Kasie Camp RNC NST REPORT Report Trigger: Send Report
== END 2019-12-06 16:50 | disposition home or self-care (01) ==
LOC: LC 09:50
PROVIDERS: ATTEND Obstetrics & Gynecology
PROC: 4A1HXCZ Monitoring of Products of Conception, Cardiac Rate, External Approach (ICD-10-PCS; principal; 2019-12-06)
DX: O41.03X0 Oligohydramnios, third trimester, not applicable or unspecified (principal); Z3A.36 36 weeks gestation of pregnancy
CPT/HCPCS: 76815; 80307; 81001; 84112

== ENCOUNTER 2019-12-07 22:46 | Outpatient (CLI) | payer BC ==
[2019-12-07 23:11] LABS: APPEARANCE,URINE CLEAR; BILIRUBIN,URINE NEGATIVE (NEGATIVE); COLOR,URINE STRAW; GLUCOSE, URINE NEGATIVE (NEGATIVE); KETONES,URINE NEGATIVE (NEGATIVE); LEUKOCYTE ESTERASE,URINE NEGATIVE (NEGATIVE); NITRITE,URINE NEGATIVE (NEGATIVE); PROTEIN,URINE NEGATIVE (NEGATIVE); URINE SPECIFIC GRAVITY 1.002; UROBILINOGEN,URINE NEGATIVE mg/dL (<2.0)
--- NOTE | 2019-12-07 23:32 | Non Stress Test Report ---
Non Stress Test Datetime Report Generated by CPN: 12/07/2019 23:32 DEMOGRAPHIC EGA NST: 36.2 VITAL SIGNS Temperature - NST: 98.5 Pulse - NST: 104 RESP - NST: 16 NBPSYS NST: 104 NBPDIA NST: 58 MONITORING Monitor Explained: Monitor Explained; Test Explained; Patient Verbalized Understanding Time on Monitor: 12/07/2019 23:00 Time off Monitor: 12/07/2019 23:27 NST Duration: 27 NST INTERVENTIONS NST Interventions: PO Hydration Physician Notified NST: Dr. Garcia BABY A: [id number] BABY A Movement : Present Contraction Frequency : none FHR Baseline : 140 Accelerations : 15X15 Decelerations : None Variability : Moderate 6-25bpm NST Review: Meets Criteria for Reactive NST NST Review and Verified By : MAEVE Rodriguez NST Results: Reactive NST REPORT Report Trigger: Send Report
[2019-12-07 23:33] LABS: URINE AMPHETAMINES SCREEN NEGATIVE; URINE BARBITURATES SCREEN NEGATIVE; URINE BENZODIAZEPINES SCREEN NEGATIVE; URINE COCAINE SCREEN NEGATIVE; URINE MARIJUANA (THC) SCREEN NEGATIVE; URINE METHADONE SCREEN NEGATIVE; URINE PHENCYCLIDINE SCREEN NEGATIVE
== END 2019-12-07 23:36 | disposition home or self-care (01) ==
LOC: LC 22:46
PROVIDERS: ATTEND Obstetrics & Gynecology Gynecology
PROC: 4A1HXCZ Monitoring of Products of Conception, Cardiac Rate, External Approach (ICD-10-PCS; principal; 2019-12-07)
DX: O36.8130 Decreased fetal movements, third trimester, not applicable or unspecified (principal); Z3A.36 36 weeks gestation of pregnancy
CPT/HCPCS: 59025; 80307; 81001

== ENCOUNTER 2019-12-27 17:50 | Inpatient (IN) | payer BC ==
[2019-12-27] MEDS ORDERED: OXYTOCIN/NORMAL SALINE 20 UNIT/1,000 ML RTUINJ IV PRN (18:15)
[2019-12-27] MEDS ORDERED: ACETAMINOPHEN 325 MG TABLET PO PRN (18:15)
[2019-12-27] MEDS ORDERED: MAG HYDROX/AL HYDROX/SIMETH SUSP 30 ML UDCUP PO PRN (18:15)
[2019-12-27] MEDS ORDERED: ZOLPIDEM TARTRATE 5 MG TABLET PO PRN (18:15)
[2019-12-27] MEDS ORDERED: DINOPROSTONE 10 MG VAGINAL INSERT.SR PV ONE (18:15)
[2019-12-27] MEDS ORDERED: RINGERS SOLUTION,LACTATED 1,000 ML IV ONE (18:15)
[2019-12-27] MEDS ORDERED: DINOPROSTONE 10 MG VAGINAL INSERT.SR ONE (18:49)
[2019-12-27 19:07] LABS: ABSOLUTE LYMPHOCYTES (AUTO) 1.7 10^3/uL (0.5-4.7); ABSOLUTE MONOCYTES (AUTO) 0.5 10^3/uL (0.1-1.4); BASOPHILS % (AUTO) 0.3 % (0-2); EOSINOPHILS % (AUTO) 0.3 % (0-6); HEMATOCRIT 31.9 % (36.0-47.0); HEMOGLOBIN 10.1 g/dL (12.0-15.5); LYMPHOCYTES % (AUTO) 18.2 % (13-45); MEAN CORPUSCULAR HEMOGLOBIN 23.1 pg (27.0-33.4); MEAN CORPUSCULAR HGB CONC 31.6 g/dL (32.0-36.0); MEAN CORPUSCULAR VOLUME 73 fl (80-97); PLATELET COUNT 220 10^3/uL (150-450); RED BLOOD COUNT 4.37 10^6/uL (3.72-5.28); SEGMENTED NEUTROPHILS % (AUTO) 76.2 % (42-78); TOTAL CELLS COUNTED % (AUTO) 100 %; WHITE BLOOD COUNT 9.1 10^3/uL (4.0-10.5)
[2019-12-27 19:27] LABS: APPEARANCE,URINE CLOUDY; BILIRUBIN,URINE NEGATIVE (NEGATIVE); COLOR,URINE YELLOW; GLUCOSE, URINE NEGATIVE (NEGATIVE); KETONES,URINE NEGATIVE (NEGATIVE); LEUKOCYTE ESTERASE,URINE NEGATIVE (NEGATIVE); NITRITE,URINE NEGATIVE (NEGATIVE); PROTEIN,URINE NEGATIVE (NEGATIVE); URINE SPECIFIC GRAVITY 1.015; UROBILINOGEN,URINE NEGATIVE mg/dL (<2.0)
[2019-12-27 19:43] LABS: URINE AMPHETAMINES SCREEN NEGATIVE; URINE BARBITURATES SCREEN NEGATIVE; URINE BENZODIAZEPINES SCREEN NEGATIVE; URINE COCAINE SCREEN NEGATIVE; URINE MARIJUANA (THC) SCREEN NEGATIVE; URINE METHADONE SCREEN NEGATIVE; URINE PHENCYCLIDINE SCREEN NEGATIVE
--- NOTE | 2019-12-27 22:41 | Admission Physical ---
Datetime Report Generated by CPN: 12/27/2019 22:41 CURRENT ADMISSION Chief Complaint: Scheduled Induction of Labor Indication for Induction: Maternal Diabetes Admit Impression : Term, Intrauterine ; No Active Labor; Intact Membranes; Induction of Labor Admit Plan: Admit to Unit; Initiate Labor Induction Protocol ALLERGIES Medication Allergies: No Medication Allergies: Iodinated Contrast Media/WA (12/27/2019) Latex: No Latex Allergies Food Allergies: None Environmental Allergies: None OBSTETRICAL HISTORY EDC: 01/02/2020 00:00 : 1 Para: 0 Term: 0 : 0 SAB: 0 IAB: 0 Ectopic: 0 Livin Cesareans: 0 VBACs: 0 Multiple Births: 0 Gestational Diabetes: No Rh Sensitization: No Incompetent Cervix: No SABINA: No Infertility: No ART Treatment: No Uterine Anomaly: No IUGR: No Hx Previous C/S: No Macrosomia: No Hx Loss/Stillborn: No PIH: No Hx : No Placenta Previa/Abruption: No Depression/PP Depression: No PTL/PROM: No Post Hemorrhage: No Current Procedures: Ultrasound; NST Obstetrical History Comments: G1 - current , anemia, GDM, borderline oligohydramnious, LGSIL SEE RECORDS Alcohol: No Marijuana : No Cocaine: No Other Illicit Drugs: No Cigarettes: Never Smoker. 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 INFECTIOUS HISTORY Gonorrhea: No Genital Herpes: No Chlamydia: No Tuberculosis: No Syphilis: No Hepatitis: No HIV/AIDS Exposure: No Rash or Viral Illness: No HPV: No PHYSICAL EXAM General: Normal HEENT: Normal Neurologic: Normal Thyroid: Normal Heart: Normal Lungs: Normal Breast: Normal Back: Normal Abdomen: Normal Genitourinary Exam: Normal Extremities: Normal DTRs: Normal Pelvic Type: Adequate Vital Signs: Reviewed; Within Normal Limits VAGINAL EXAM Dilatation: closed Effacement: thick Station: high Contraction Comments: rare MEMBRANES Membranes: Intact FETUS A EGA: 39.1 Monitoring: External US FHR- Baseline: 140s Variability: Moderate 6-25bpm Accelerations: 15X15 FHR Category: Category I Admit Comment: w/an IUP @ 39-1/7 weeks presents to L_D for a scheduled IOL secondary to GDM, on meds. She reports good movement. She is GBS Negative. PLANS FOR LABOR AND DELIVERY Labor and Delivery: None Pain Management: Medications; Epidural Feeding Preference: Breast Benefit of Breast Feed Discussed: Yes Circumcision: Yes INFORMED CONSENT Signature: with User ID: [email or web address]
[2019-12-28] MEDS ORDERED: OXYTOCIN/NORMAL SALINE 20 UNIT/1,000 ML RTUINJ IV PRN (11:45)
[2019-12-28] MEDS ORDERED: OXYTOCIN/NORMAL SALINE 20 UNIT/1,000 ML RTUINJ ONE (12:25)
[2019-12-28] MEDS ORDERED: MISOPROSTOL 0.2 MG TABLET ONE (12:25)
[2019-12-28] MEDS ORDERED: LIDOCAINE 1% INJ-PF (10 MG/ML) 30 ML SDV ONE (12:25)
[2019-12-28] MEDS ORDERED: OXYTOCIN 10 UNIT/ML VIAL ONE (12:25)
[2019-12-28] MEDS ORDERED: PROMETHAZINE HCL INJ 25 MG/1 ML VIAL ONE (12:33)
[2019-12-28] MEDS ORDERED: MORPHINE SULFATE 10 MG/ML INJ ONE (12:33)
[2019-12-28] MEDS ORDERED: MORPHINE SULFATE 10 MG/ML INJ IV ONE (12:35)
[2019-12-28] MEDS ORDERED: PROMETHAZINE HCL INJ 25 MG/1 ML VIAL IV ONE (12:35)
[2019-12-28] MEDS ORDERED: EPHEDRINE SULFATE INJ 50 MG/1 ML AMPULE ONE (21:44)
[2019-12-28] MEDS ORDERED: FENTANYL/BUPIVACAINE/NS/PF 300 MCG/150 ML RTUINJ EPI ONE (21:45)
[2019-12-28] MEDS ORDERED: FENTANYL CITRATE INJ/PF 100 MCG/2 ML AMPUL ONE (21:45)
[2019-12-29] MEDS ORDERED: OXYTOCIN/NORMAL SALINE 20 UNIT/1,000 ML RTUINJ ONE (07:28)
[2019-12-29] MEDS ORDERED: OXYTOCIN/NORMAL SALINE 20 UNIT/1,000 ML RTUINJ IV PRN (07:43)
[2019-12-29] MEDS ORDERED: DEXTROSE 5%-WATER 250 ML IV PRN (08:35)
[2019-12-29] MEDS: RINGERS SOLUTION,LACTATED 1,000 ML IV PRN ×2 (09:04→21:06)
[2019-12-29] MEDS ORDERED: FENTANYL/BUPIVACAINE/NS/PF 300 MCG/150 ML RTUINJ EPI ONE (12:38)
[2019-12-29] MEDS ORDERED: BUPIVACAINE HCL 0.5 % INJ/PF 30 ML SDV ONE ×2 (13:21→19:52)
[2019-12-29] MEDS ORDERED: AMPICILLIN SOD INJ 2 GM VIAL ONE (20:54)
[2019-12-30] MEDS ORDERED: CITRIC ACID/SODIUM CITRATE ORAL SOLN 15 ML UDCUP ONE (01:51)
[2019-12-30] MEDS ORDERED: CEFAZOLIN INJ 1 GM VIAL ONE (01:52)
[2019-12-30] MEDS ORDERED: OXYTOCIN/NORMAL SALINE 20 UNIT/1,000 ML RTUINJ ONE ×2 (01:52→02:04)
[2019-12-30] MEDS ORDERED: LIDOCAINE 2% INJ-PF (20 MG/ML) 10 ML AMPUL ONE (02:03)
[2019-12-30] MEDS ORDERED: OXYTOCIN 10 UNIT/ML VIAL ONE (02:03)
[2019-12-30] MEDS ORDERED: KETOROLAC TROMETHAMINE INJ/PF 30 MG/1 ML SDV ONE (02:03)
[2019-12-30] MEDS ORDERED: MIDAZOLAM 2 MG/2 ML INJ ONE (02:04)
[2019-12-30] MEDS ORDERED: FENTANYL CITRATE INJ/PF 100 MCG/2 ML AMPUL ONE ×2 (02:04→03:15)
[2019-12-30] MEDS ORDERED: EPHEDRINE SULFATE INJ 50 MG/1 ML AMPULE ONE ×2 (02:04→03:15)
[2019-12-30] MEDS ORDERED: ONDANSETRON HCL INJ/PF 4 MG/2 ML SDV ONE (02:04)
[2019-12-30] MEDS ORDERED: OXYTOCIN/NORMAL SALINE 20 UNIT/1,000 ML RTUINJ IV PRN (03:13)
[2019-12-30] MEDS ORDERED: PROMETHAZINE HCL INJ 25 MG/1 ML VIAL IV PRN (03:13)
[2019-12-30] MEDS ORDERED: MEASLES,MUMPS&RUBELLA VACC/PF 0.5 ML VIAL SUBCUT PRN (03:13)
[2019-12-30] MEDS ORDERED: ACETAMINOPHEN 325 MG TABLET PO PRN (03:13)
[2019-12-30] MEDS ORDERED: SIMETHICONE 80 MG TAB.CHEW PO PRN (03:13)
[2019-12-30] MEDS ORDERED: ACETAMINOPHEN 1,000 MG/100 ML RTUPB IV PRN (03:13)
[2019-12-30] MEDS ORDERED: DIPH/PERTUSS(ACELL)/TETANUS VAC/PF 0.5 ML SYR (>=10YO) IM PRN (03:13)
--- NOTE | 2019-12-30 03:17 | Operative Report ---
Operative Report DATE OF SURGERY: 12/30/19 PREOPERATIVE DIAGNOSIS: IUP at term GDM failure to progress POSTOPERATIVE DIAGNOSIS: Same OPERATION: Primary low transverse section SURGEON: MARIAM LEONARDO ANESTHESIA: Epidural TISSUE REMOVED OR ALTERED: Placenta ESTIMATED BLOOD LOSS: 1200 cc PROCEDURE: The patient was taken to the operating room where spinal anesthesia was obtained and found to be adequate. She was then prepped and draped in the normal sterile fashion and placed in the dorsal supine position with a leftward tilt. A Pfannenstiel skin incision was then made and carried through to the underlying layers of the fascia with the scalpel. The fascia was incised in the midline and the incision extended laterally with the Thakur scissors. The superior aspect of the fascial incision was then grasped with Aneta clamps elevated and the underlying rectus muscles dissected off bluntly. Attention was then turned to the inferior aspect of the fascial incision which in a similar fashion was grasped, tented up with Amber clamps, and the rectus muscles dissected off bluntly. The rectus muscles were then in the midline and the peritoneum at the amount identified and entered bluntly. The peritoneal incision was then extended superiorly and inferiorly with good visualization of the bladder. [The bladder blade was inserted and the vesicouterine peritoneum identified grasped with [place] pickups and entered sharply with the Metzenbaum scissors. His incision was then extended laterally with the Metzenbaum scissors and a bladder flap created digitally. The bladder blade was then reinserted and the lower uterine segment incised in a transverse fashion with the scalpel. The uterine incision was then extended bluntly. The bladder blade was removed and the 's head was delivered from cephalic presentation atraumatically. The nose and mouth were suctioned and the cord doubly clamped and cut. And the was handed off to waiting pediatricians. The placenta was then delivered manully and the uterus exteriorized and cleared of all clots and debris. The uterine incision was then repaired with 1-0 Vicryl in a running locked fashion. A second layer of the same suture was used to obtain hemostasis via imbrication of the initial layer. The uterus was returned to the patient's abdomen. The gutters were cleared of all clots and debris. All operative sites were noted to be hemostatic. The fascia was reapproximated with 0 Vicryl in a running fashion from each lateral edge to the midline. The patient tolerated the procedure well. Sponge lap needle and instrument counts are correct -2. 2 g of Ancef were given prior to skin incision. The patient was taken to the recovery area awake and in stable condition.
--- NOTE | 2019-12-30 03:23 | Warning Signs in Babies ---
VOD Warning Signs Datetime Report Generated by [facility]: 12/30/2019 03:23 VOD#608 -Warning Signs in Babies: Needs to be viewed. (12/30/2019 03:11:Zenobia Zayas RN)
[2019-12-30] MEDS: AMPICILLIN SOD INJ 2 GM VIAL IV SCH ×3 (03:34→21:36)
[2019-12-30] MEDS ORDERED: ACETAMINOPHEN 1,000 MG/100 ML RTUPB IV ONE (03:52)
[2019-12-30] MEDS ORDERED: MORPHINE SULFATE 10 MG/ML INJ ONE (04:06)
[2019-12-30] MEDS ORDERED: AMPICILLIN SOD INJ 2 GM VIAL ONE (04:16)
--- NOTE | 2019-12-30 07:08 | Delivery Summary ---
Del Sum A-C Datetime Report Generated by CPN: 12/30/2019 07:08 DELIVERY PERSONNEL DELIVERY PERSONNEL: [id number] Delivery Doctor:: Lalo Garcia MD Anesthesiologist:: Zaida Rm MD CARE REP:: Louie Bear CRNA Labor and Delivery Nurse:: Zenobia Zayas RN Prosthetic Aide:: Frances Garzon RN Neonatal Nurse Practitioner:: BEA Yang Nursery Nurse:: Ivy Obrien RN Electric Arc Furnace Operator/GUN STOCKER: ST [employer] Electric Arc Furnace Operator/GUN STOCKER: Any Turk, BRUSH STAINER MATERNAL INFORMATION Delivery Anesthesia: Epidural Meds After Delivery Comment: Pitocin 20 units x 2 bags Delivery QBL Comment: 255 in cannister + 640 = 895 TOTAL Maternal Complications: Maternal Fever LABOR SUMMARY EDC: 01/02/2020 00:00 No. Babies in Womb: 1 Attempted: No Labor Anesthesia: Epidural LABOR INFORMATION Reason for Induction: Maternal Diabetes; Oligohydramnios Onset of Labor: 12/29/2019 10:12 Complete Dilatation: 12/29/2019 21:17 Cervical Ripening Agents: Cervidil Oxytocin: Induction Group B Beta Strep: negative Antibiotics # of Doses: 0 Steroids Given: None Reason Steroids Not Administered: Not Applicable MEMBRANES Membranes Rupture Method: Artificial Rupture of Membranes: 12/28/2019 17:07 Length of Rupture (hr): 33.60 Amniotic Fluid Color: Clear Amniotic Fluid Amount: Small STAGES OF LABOR Stage 1 hr: 11 Stage 1 min: 5 Stage 2 hr: 5 Stage 2 min: 26 Stage 3 hr: 0 Stage 3 min: 0 Total Time in Labor hr: 16 Total Time in Labor min: 31 VAGINAL DELIVERY Episiotomy: None Laceration #1: None Laceration Extension #1: N/A Laceration Repair: Not Applicable Sharps Count Correct: N/A CSECTION DELIVERY Primary Indication: Arrest of Descent Secondary Indication: N/A CSection Urgency: Non-Scheduled CSection Incidence: Primary Labor: Labor Elective: Nonelective CSection Incision: Lower Uterine Transverse BABY A INFORMATION Delivery Date/Time: 12/30/2019 02:43 Method of Delivery: Born in Route : No : N/A Forceps: N/A Vacuum Extraction: N/A Shoulder Dystocia : No PRESENTATION/POSITION BABY A Presentation: Cephalic Cephalic Presentation: Vertex Breech Presentation: N/A PLACENTA INFORMATION BABY A Placenta Delivery Time : 12/30/2019 02:43 Placenta Method of Delivery: Manual Removal Placenta Status: Delivered SCORES BABY A Heart Rate 1 min: >100 bpm Resp Effort 1 min: Good Cry Reflex Irritability 1 min: Cough or Sneeze or Pulls Away Muscle Tone 1 min: Some Flexion of Extremities Color 1 min: Body [place], Extremities Blue Resuscitation Effort 1 min: Tactile Stimulation SCORE 1 MIN: 8 Heart Rate 5 min: >100 bpm Resp Effort 5 min: Good Cry Reflex Irritability 5 min: Cough or Sneeze or Pulls Away Muscle Tone 5 min: Active Motion Color 5 min: Body [place], Extremities Blue Resuscitation Effort 5 min: Tactile Stimulation SCORE 5 MIN: 9 INFORMATION BABY A Gestational Age at Delivery: 39.4 Gestational Status: Full Term- 39- 40.6 Weeks Outcome : Liveborn Infant Condition : Stable Infant Sex: Male IDENTIFICATION BABY A Verification Date/Time: 12/30/2019 03:36 ID Band Number: [id number] Mother's Name Verified: Yes Infant RN Verifying Infant: B. Ring _ J. Micah WEIGHT/LENGTH BABY A Infant Birthweight (gm): 3080 Infant Weight (lb): 6 Weight (oz): 13 Infant Length (in): 20.50 Length (cm): 52.07 CORD INFORMATION BABY A No. Cord Vessels: 3 Nuchal Cord : N/A Cord Blood Taken: Yes-For Storage (Mom's Blood type +) ASSESSMENT BABY A Complications: None Physical Findings at Delivery: Within Normal Limits; Caput Succedaneum; Molding of the Head; Puncture Wound from Scalp Electrode; Other Physical Findings- Other: See full nursery outside cutter hand Respirations: Appears Normal Skin to Skin: No Ore Grader/ALS Called : No Infant Care By: Pedro Obrien RN Transferred To: Nursery BABY B INFORMATION : N/A SIGNATURES Signature: with User ID: [email or web address]
[2019-12-30] MEDS ORDERED: OXYCODONE-ACETAMINOPHEN 5-325 MG TABLET ONE (07:47)
[2019-12-30] MEDS ORDERED: PRENATAL VITAMIN W DHA CAPSULE PO SCH (10:00)
[2019-12-30] MEDS: DOCUSATE SODIUM 100 MG CAPSULE PO SCH ×2 (10:16→18:06)
[2019-12-30] MEDS: PRENATAL VITAMIN W DHA CAPSULE PO SCH (10:17)
[2019-12-30] MEDS: KETOROLAC TROMETHAMINE INJ/PF 30 MG/1 ML SDV IV SCH ×2 (10:17→18:02)
[2019-12-30] MEDS ORDERED: AMPICILLIN SODIUM 2 GM in NORMAL SALINE 100 ML IV ONE (11:00)
[2019-12-30] MEDS: OXYCODONE-ACETAMINOPHEN 5-325 MG TABLET PO PRN (16:31)
[2019-12-31] MEDS: OXYCODONE-ACETAMINOPHEN 5-325 MG TABLET PO PRN ×3 (00:16→21:06)
[2019-12-31] MEDS: IBUPROFEN 800 MG TABLET PO SCH ×3 (06:08→18:25)
[2019-12-31 07:21] LABS: HEMATOCRIT 25.1 % (36.0-47.0); MEAN CORPUSCULAR HEMOGLOBIN 23.2 pg (27.0-33.4); MEAN CORPUSCULAR HGB CONC 32.1 g/dL (32.0-36.0); MEAN CORPUSCULAR VOLUME 72 fl (80-97); PLATELET COUNT 184 10^3/uL (150-450); RED BLOOD COUNT 3.47 10^6/uL (3.72-5.28); RED CELL DISTRIBUTION WIDTH 16.3 % (11.5-14.0); WHITE BLOOD COUNT 11.4 10^3/uL (4.0-10.5)
[2019-12-31] MEDS: DOCUSATE SODIUM 100 MG CAPSULE PO SCH ×2 (10:21→18:26)
[2019-12-31] MEDS: PRENATAL VITAMIN W DHA CAPSULE PO SCH (10:21)
--- NOTE | 2019-12-31 10:46 | PDOC PROGRESS REPORT ---
Subjective-OB Progress Note for:: 12/31/19 Subjective: Pt doing well, has been out of bed, reg diet with +flatus and is voiding without difficulty. Physical Exam (OB) Vital Signs: Temp Pulse Resp BP Pulse Ox 98.3 F 94 16 112/69 97 12/31/19 07:40 12/31/19 07:40 12/31/19 07:40 12/31/19 07:40 12/31/19 07:40 Intake & Output 12/30/19 12/31/19 01/01/20 06:59 06:59 06:59 Intake Total 1100 Balance 1100 - Dressing Removed: Yes Closure Type: Surgical Glue Note: no s/sx of infection - Lochia Lochia Amount: Small 10-25 ml Lochia Color: Rubra/Red - Abdomen Description: Soft Hernia Present: No Fundal Description: Firm, Midline Fundal Height: u/u - u/2 Objective-Diagnostic Laboratory: 12/31/19 06:33 12/31/19 06:33 WBC 11.4 H RBC 3.47 L Hgb 8.0 L Hct 25.1 L MCV 72 L MCH 23.2 L MCHC 32.1 RDW 16.3 H Plt Count 184 Assessment and Plan(PN) - Assessment and Plan (1) Failure of descent in labor, delivered, current hospitalization Is this a current diagnosis for this admission?: Yes (2) delivery delivered Is this a current diagnosis for this admission?: Yes (3) Gestational diabetes mellitus (GDM) in childbirth, diet controlled Is this a current diagnosis for this admission?: Yes (4) Oligohydramnios antepartum Qualifiers: Fetus number: single or unspecified fetus Qualified Code(s): O41.00X0 - Oligohydramnios, unspecified trimester, not applicable or unspecified Is this a current diagnosis for this admission?: Yes - Time Spent with Patient Time with patient: Less than 15 minutes Medications reviewed and adjusted accordingly: Yes - Disposition Anticipated Discharge: Home Within: within 48 hours
[2020-01-01] MEDS: IBUPROFEN 800 MG TABLET PO SCH ×4 (00:01→17:22)
[2020-01-01] MEDS: PRENATAL VITAMIN W DHA CAPSULE PO SCH (09:21)
[2020-01-01] MEDS: DOCUSATE SODIUM 100 MG CAPSULE PO SCH ×2 (09:22→17:23)
--- NOTE | 2020-01-01 11:57 | PDOC DISCHARGE SUMMARY ---
Impression - Admit/DC Date/PCP Admission Date/Primary Care Provider: 12/27/19 17:50 YOSVANY RODRIGUEZ MD Discharge Date: 01/01/20 - Discharge Diagnosis (1) delivery delivered Is this a current diagnosis for this admission?: Yes (2) Failure of descent in labor, delivered, current hospitalization Is this a current diagnosis for this admission?: Yes (3) Gestational diabetes mellitus (GDM) in childbirth, diet controlled Is this a current diagnosis for this admission?: Yes (4) Oligohydramnios antepartum Is this a current diagnosis for this admission?: Yes - Additional Information Discharge Diet: Regular Discharge Activity: Balance Activity w/Rest, No Lifting Over 10 Pounds, No Lifting/Push/Pulling, Pelvic Rest, No tub bath Referrals: YOSVANY RODRIGUEZ MD [Primary Care Provider] - Prescriptions: Ibuprofen [Motrin 800 mg Tablet] 800 mg PO Q8HP PRN #60 tablet PRN Reason: Oxycodone HCl/Acetaminophen [Percocet 5-325 mg Tablet] 1 tab PO Q4HP PRN #30 tablet PRN Reason: Home Medications: Vit 40/Iron/Folic/Dha [ Multivitamin-Dha Sfgl] 1 each PO DAILY 10/03/19 Ibuprofen [Motrin 800 mg Tablet] 800 mg PO Q8HP PRN #60 tablet 01/01/20 Oxycodone HCl/Acetaminophen [Percocet 5-325 mg Tablet] 1 tab PO Q4HP PRN #30 tablet 01/01/20 HPI Gestational Age: 39+1 Reason(s) for Admission: Induction of Labor Procedures: NST Intrapartum Procedure(s): : Low Cervical, Transverse Results Laboratory Results: WBC 11.4 10^3/uL (4.0-10.5) H 12/31/19 06:33 RBC 3.47 10^6/uL (3.72-5.28) L 12/31/19 06:33 Hgb 8.0 g/dL (12.0-15.5) L 12/31/19 06:33 Hct 25.1 % (36.0-47.0) L 12/31/19 06:33 MCV 72 fl (80-97) L 12/31/19 06:33 MCH 23.2 pg (27.0-33.4) L 12/31/19 06:33 MCHC 32.1 g/dL (32.0-36.0) 12/31/19 06:33 RDW 16.3 % (11.5-14.0) H 12/31/19 06:33 Plt Count 184 10^3/uL (150-450) 12/31/19 06:33 Lymph % (Auto) 18.2 % (13-45) 12/27/19 18:30 [place] % (Auto) 5.0 % (3-13) 12/27/19 18:30 Eos % (Auto) 0.3 % (0-6) 12/27/19 18:30 Baso % (Auto) 0.3 % (0-2) 12/27/19 18:30 Absolute Neuts (auto) 7.0 10^3/uL (1.7-8.2) 12/27/19 18:30 Absolute Lymphs (auto) 1.7 10^3/uL (0.5-4.7) 12/27/19 18:30 Absolute Monos (auto) 0.5 10^3/uL (0.1-1.4) 12/27/19 18:30 Absolute Eos (auto) 0.0 10^3/uL (0.0-0.6) 12/27/19 18:30 Absolute Basos (auto) 0.0 10^3/uL (0.0-0.2) 12/27/19 18:30 Seg Neutrophils % 76.2 % (42-78) 12/27/19 18:30 Urine Color YELLOW 12/27/19 17:54 Urine Appearance CLOUDY 12/27/19 17:54 Urine pH 6.0 (5.0-9.0) 12/27/19 17:54 Ur Specific [place] 1.015 12/27/19 17:54 Urine Protein NEGATIVE mg/dL (NEGATIVE) 12/27/19 17:54 Urine Glucose (UA) NEGATIVE mg/dL (NEGATIVE) 12/27/19 17:54 Urine Ketones NEGATIVE mg/dL (NEGATIVE) 12/27/19 17:54 Urine Blood NEGATIVE (NEGATIVE) 12/27/19 17:54 Urine Nitrite NEGATIVE (NEGATIVE) 12/27/19 17:54 Urine Bilirubin NEGATIVE (NEGATIVE) 12/27/19 17:54 Urine Urobilinogen NEGATIVE mg/dL (<2.0) 12/27/19 17:54 Ur Leukocyte Esterase NEGATIVE (NEGATIVE) 12/27/19 17:54 Urine Ascorbic Acid NEGATIVE (NEGATIVE) 12/27/19 17:54 Urine Opiates Screen NEGATIVE 12/27/19 17:54 Urine Methadone Screen NEGATIVE 12/27/19 17:54 Ur Barbiturates Screen NEGATIVE 12/27/19 17:54 Ur Phencyclidine Scrn NEGATIVE 12/27/19 17:54 Ur Amphetamines Screen NEGATIVE 12/27/19 17:54 U Benzodiazepines Scrn NEGATIVE 12/27/19 17:54 Urine Cocaine Screen NEGATIVE 12/27/19 17:54 U Marijuana (THC) Screen NEGATIVE 12/27/19 17:54 RPR NONREACTIVE (NONREACTIVE) 12/27/19 18:30 Blood Type A POSITIVE 12/27/19 18:30 Antibody Screen NEGATIVE 12/27/19 18:30 Plan Plan of Treatment: follow up in one week at [facility] for incision check
[2020-01-01 12:06] VITALS: BP 125/68
== END 2020-01-01 18:53 | disposition home or self-care (01) | DRG 787 ==
LOC: LR 17:50 → 2S 12-30 09:19
PROVIDERS: ADMIT Obstetrics & Gynecology; ATTEND Obstetrics & Gynecology
PROC: 10907ZC Drainage of Amniotic Fluid, Therapeutic from Products of Conception, Via Natural or Artificial Opening (ICD-10-PCS; 2019-12-28)
PROC: 3E033VJ Introduction of Other Hormone into Peripheral Vein, Percutaneous Approach (ICD-10-PCS; 2019-12-29)
PROC: 10D00Z1 Extraction of Products of Conception, Low, Open Approach (ICD-10-PCS; principal; 2019-12-30)
DX: O24.420 Gestational diabetes mellitus in childbirth, diet controlled (principal); O41.03X0 Oligohydramnios, third trimester, not applicable or unspecified; O62.1 Secondary uterine inertia; Z37.0 Single live birth; Z3A.39 39 weeks gestation of pregnancy; Z91.041 Radiographic dye allergy status
CPT/HCPCS: 1961; 36415; 80307; 81005; 85025; 85027; 86592; 86850; 86900; 86901; 94799; J0131; J0290; J0690; J1885; J2250; J2270; J2405; J2550; J2590; J3010; J3490; J7050